=== PATIENT | male | born 1970 | race African-American/Black ===

== ENCOUNTER 2017-01-27 00:07 | Emergency (ER) | payer OTHER ==
[~2017-01-27] VITALS: Ht 175.3 cm; Wt 88.9 kg
--- NOTE | ~2017-01-27 | EKG ---
[address] [place] [address] ELECTROCARDIOGRAM REPORT Name: JOAN HERNANDEZ CANDACE 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: [id number] : 1970 Requested By: Clark Sims Order Number: [id number] MD: Antoine Sen Measurements Intervals [place] Rate: 58 P: 59 VT: 177 QRS: 51 QRSD: 78 T: 23 QT: 427 QTc: 420 Interpretive Statements Sinus bradycardia Otherwise no significant abnormality Baseline wander in lead(s) V3 Compared to ECG 09/22/2014 15:42:24 No significant change was found Electronically Signed On 01-27-2017 10:13:23 CDT by Antoine Sen [email or web address] <ELECTRONICALLY SIGNED> By: Antoine Sen MD, [facility] 01/27/17 1013 002 Antoine Sen MD, [facility] /EPI
[~2017-01-27 00:07] MED LIST: AMBIEN 5 MG TABL5 M1 PO; AMOXICILLIN 50500 M1 PO; APAP/CODEINE ELI5 M1 OR; APAP500 PO; AUGMENTIN 875-1 EACH PO; AUGMENTIN 875875 MG PO; BACTRIM DS TAB1 EACH PO; BACTROBAN CREAM30 G1; BAYER BACK & B1 EACH PO; CLARITIN; CLARITIN-D 24 H1 TA1 PO; CLEOCIN HCL150 MG PO; CLEOCIN HCL300 MG PO; DEXAMETHASONE 22 M1 PO; ENDOCET 10-3251 EACH PO; HYDROCODONE-AP1 EAC6; HYDROCODONE-AP1 EAC6 PO; HYDROGEN PEROXID1 ML; IBUPROFEN 600600 M1 PO; INVANZ 1GM/NS 101 GM IVPB; KEFLEX500 MG PO; LOPRESSOR50 PO; NORCO 5-325 TA1 EACH PO; ONDANSETRON HCL4 M2 PO; PERCOCET 5-3251 EACH PO; PREDNISONE; PREDNISONE 10 M10 MG PO; PREDNISONE 20 M20 M1 PO; PREDNISONE 5 MG5 M1 PO; PROVENTIL HFA6.7 G1 INH; TESSALON PERLE100 MG PO; TESSALON PERLES; TORADOL 10 MG T10 MG PO; VICODIN 5-5001 EACH PO; ZOCOR20 MG PO; ZOSYN 3/0.373.375 G3 IV; ZPAK PO
[2017-01-27] MEDS ORDERED: LISINOPRIL20 MG PO (00:13)
[2017-01-27 00:36] LABS: ABSOLUTE NEUTROPHILS 3.2 thou/uL (1.4-8.2); BASOPHILS 0.7 % (0.0-2.0); EOSINOPHILS 3.3 % (0.0-3.0); HEMOGLOBIN 15.8 gm/dL (14.0-18.0); LYMPHOCYTES 39.2 % (24.0-44.0); MCHC 34.4 g/dL (28.0-37.0); MCV 98.9 fL (80.0-100.0); MONOCYTES 10.6 % (1.0-8.0); PLATELET COUNT 241 thou/uL (150-400); POLYS 46.2 % (36.0-66.0); RBC 4.66 mil/uL (4.50-6.00); RDW 14.8 % (10.5-14.5); WBC 6.9 thou/uL (4.0-11.0)
[2017-01-27 00:39] LABS: MANUAL DIFF NO
[2017-01-27 00:40] LABS: ANION GAP 11 mmol/L (7-16); BUN 13 mg/dL (7-18); CALCIUM 8.9 mg/dL (8.5-10.1); CHLORIDE 104 mmol/L (98-107); CO2 24 mmol/L (21-32); CREATININE 0.9 mg/dL (0.7-1.3); GLUCOSE 97 mg/dL (74-106); POTASSIUM 3.7 mmol/L (3.5-5.1); SODIUM 139 mmol/L (136-145)
[2017-01-27 00:48] LABS: TROPONIN-I < 0.04 ng/mL (<0.04-0.07)
[2017-01-27] MEDS ORDERED: FLEXERIL PO (03:11)
[2017-01-27] MEDS ORDERED: IBUPROFEN 800800 M1 PO (03:11)
== END 2017-01-27 03:34 | disposition home or self-care (01) ==
LOC: ER 00:07
PROVIDERS: Emergency Medicine
DX: S46.911A Strain of unspecified muscle, fascia and tendon at shoulder and upper arm level, right arm, initial encounter (principal); R07.89 Other chest pain; R20.9 Unspecified disturbances of skin sensation; I10 Essential (primary) hypertension; F17.210 Nicotine dependence, cigarettes, uncomplicated; F10.99 Alcohol use, unspecified with unspecified alcohol-induced disorder; Z98.890 Other specified postprocedural states; X58.XXXA Exposure to other specified factors, initial encounter; Y93.89 Activity, other specified; Y92.89 Other specified places as the place of occurrence of the external cause; Y99.8 Other external cause status

== ENCOUNTER 2017-02-08 11:28 | Emergency (ER) | payer OTHER ==
[~2017-02-08] VITALS: Ht 175.3 cm; Wt 88.0 kg
[~2017-02-08 11:28] MED LIST changes: +FLEXERIL PO; +IBUPROFEN 800800 M1 PO; +LISINOPRIL20 MG PO
[2017-02-08] MEDS ORDERED: APAP500 PO (11:41)
[2017-02-08 12:49] LABS: ABSOLUTE NEUTROPHILS 3.1 thou/uL (1.4-8.2); BASOPHILS 0.5 % (0.0-2.0); EOSINOPHILS 4.7 % (0.0-3.0); LYMPHOCYTES 33.4 % (24.0-44.0); MCH 33.9 pg (26.0-34.0); MCHC 33.9 g/dL (28.0-37.0); MCV 99.9 fL (80.0-100.0); MONOCYTES 9.3 % (1.0-8.0); PLATELET COUNT 246 thou/uL (150-400); POLYS 52.1 % (36.0-66.0); RBC 4.71 mil/uL (4.50-6.00); RDW 15.4 % (10.5-14.5)
[2017-02-08 12:55] LABS: MANUAL DIFF NO
[2017-02-08 13:17] LABS: CALCIUM 8.8 mg/dL (8.5-10.1); CREATININE 0.9 mg/dL (0.7-1.3)
[2017-02-08] MEDS ORDERED: MEDROLDOSEPACK PO (17:40)
[2017-02-08] MEDS ORDERED: NORCO 5-325 TA1 EACH PO (17:40)
[2017-02-08] MEDS ORDERED: AUGMENTIN 875875 MG PO (17:40)
== END 2017-02-08 19:08 | disposition home or self-care (01) ==
LOC: ER 11:28
PROVIDERS: Nurse Practitioner
DX: K12.2 Cellulitis and abscess of mouth (principal); G43.909 Migraine, unspecified, not intractable, without status migrainosus; I10 Essential (primary) hypertension; F17.210 Nicotine dependence, cigarettes, uncomplicated; F10.99 Alcohol use, unspecified with unspecified alcohol-induced disorder; Z98.890 Other specified postprocedural states

== ENCOUNTER 2017-03-23 02:59 | Emergency (ER) | payer OTHER ==
[~2017-03-23] VITALS: Ht 175.3 cm; Wt 82.6 kg
[~2017-03-23 02:59] MED LIST changes: +MEDROLDOSEPACK PO
[2017-03-23] MEDS ORDERED: CLEOCIN HCL150 MG PO (03:33)
[2017-04-06] MEDS ORDERED: FLEXERIL PO (23:37)
[2017-04-06] MEDS ORDERED: PERCOCET 5-3251 EACH PO (23:37)
== END 2017-03-23 04:37 | disposition home or self-care (01) ==
LOC: ER 02:59
DX: G43.909 Migraine, unspecified, not intractable, without status migrainosus (principal); I10 Essential (primary) hypertension; F17.210 Nicotine dependence, cigarettes, uncomplicated; F10.99 Alcohol use, unspecified with unspecified alcohol-induced disorder

== ENCOUNTER 2017-04-06 22:10 | Emergency (ER) | payer OTHER | END 2017-04-07 00:01 | disposition home or self-care (01) | LOC: ER 22:10 | DX: C14.0 Malignant neoplasm of pharynx, unspecified (principal); G89.3 Neoplasm related pain (acute) (chronic); G43.909 Migraine, unspecified, not intractable, without status migrainosus; I10 Essential (primary) hypertension; F17.210 Nicotine dependence, cigarettes, uncomplicated; F10.99 Alcohol use, unspecified with unspecified alcohol-induced disorder; Z98.890 Other specified postprocedural states ==

== ENCOUNTER 2017-04-26 08:19 | Emergency (ER) | payer OTHER ==
[~2017-04-26] VITALS: Ht 175.3 cm; Wt 83.5 kg
[2017-04-26 09:20] LABS: HEMATOCRIT 45.9 % (42.0-52.0); HEMOGLOBIN 15.9 gm/dL (14.0-18.0); MCH 33.4 pg (26.0-34.0); MCHC 34.6 g/dL (28.0-37.0); MCV 96.5 fL (80.0-100.0); RBC 4.76 mil/uL (4.50-6.00); RDW 14.2 % (10.5-14.5); WBC 6.7 thou/uL (4.0-11.0)
[2017-04-26 09:33] LABS: POTASSIUM 4.1 mmol/L (3.5-5.1)
== END 2017-04-26 11:41 | disposition home or self-care (01) ==
LOC: ER 08:19
PROVIDERS: Emergency Medicine
DX: R22.1 Localized swelling, mass and lump, neck (principal); G43.909 Migraine, unspecified, not intractable, without status migrainosus; I10 Essential (primary) hypertension; F17.210 Nicotine dependence, cigarettes, uncomplicated; F10.99 Alcohol use, unspecified with unspecified alcohol-induced disorder

== ENCOUNTER 2017-09-03 10:17 | Emergency (ER) | payer OTHER ==
[~2017-09-03] VITALS: Ht 182.9 cm; Wt 104.3 kg
[~2017-09-03 10:17] MED LIST changes: +TRAMADOL 50 MG50 MG PO
[2017-09-03 10:18] VITALS: BP 165/120
[2017-09-03] MEDS ORDERED: TRAMADOL 50 MG50 MG PO (10:51)
[2017-09-03] MEDS ORDERED: AMOXICILLIN 50500 MG PO (10:51)
[2018-03-11] MEDS ORDERED: NORCO 5-325 TA1 EACH PO (15:13)
[2018-03-11] MEDS ORDERED: PREDNISONE 20 M20 MG PO (15:13)
[2018-03-11] MEDS ORDERED: CYCLOBENZAPRINE5 MG PO (15:13)
[2018-03-11] MEDS ORDERED: MOBIC7.5 MG PO (15:13)
[2018-04-19] MEDS ORDERED: PRINIVIL10 MG PO (20:12)
[2018-04-19] MEDS ORDERED: GUAIFEN-CODEINE10 ML PO (22:48)
== END 2017-09-03 11:17 | disposition home or self-care (01) ==
LOC: ER 10:17
DX: K04.7 Periapical abscess without sinus (principal); G43.909 Migraine, unspecified, not intractable, without status migrainosus; I10 Essential (primary) hypertension; F17.210 Nicotine dependence, cigarettes, uncomplicated

== ENCOUNTER 2017-10-02 20:12 | Emergency (ER) | payer OTHER ==
[~2017-10-02] VITALS: Ht 175.3 cm; Wt 88.5 kg
[~2017-10-02 20:12] MED LIST changes: +AMOXICILLIN 50500 MG PO
[2017-10-02] MEDS ORDERED: TYLENOL325 MG PO (20:36)
[2017-10-02 22:09] LABS: ABSOLUTE NEUTROPHILS 2.8 thou/uL (1.4-8.2); BASOPHILS 0.6 % (0.0-2.0); EOSINOPHILS 5.6 % (0.0-3.0); HEMOGLOBIN 15.3 gm/dL (14.0-18.0); LYMPHOCYTES 33.6 % (24.0-44.0); MCH 33.3 pg (26.0-34.0); MCHC 33.9 g/dL (28.0-37.0); MONOCYTES 10.3 % (1.0-8.0); PLATELET COUNT 204 thou/uL (150-400); POLYS 49.9 % (36.0-66.0); RBC 4.59 mil/uL (4.50-6.00); RDW 14.1 % (10.5-14.5); WBC 5.6 thou/uL (4.0-11.0)
[2017-10-02 22:12] LABS: CALCIUM 8.9 mg/dL (8.5-10.1)
[2017-10-02 22:19] LABS: ALBUMIN 3.7 g/dL (3.4-5.0); TOTAL BILIRUBIN 0.2 mg/dL (<0.1-1.0); TOTAL PROTEIN 6.4 g/dL (6.4-8.2)
[2017-10-02] MEDS ORDERED: AUGMENTIN 500-1 EACH PO (23:14)
[2017-10-02] MEDS ORDERED: HYDROCODONE-AP1 EAC6 PO (23:14)
[2017-10-02] MEDS ORDERED: PREDNISONE 20 M20 M1 PO (23:14)
[2017-10-02] MEDS ORDERED: MOBIC7.5 MG PO (23:14)
[2017-10-02 23:35] VITALS: BP 155/96
[2018-03-11] MEDS ORDERED: MOBIC7.5 MG PO (15:13)
[2018-03-11] MEDS ORDERED: NORCO 5-325 TA1 EACH PO (15:13)
[2018-03-11] MEDS ORDERED: CYCLOBENZAPRINE5 MG PO (15:13)
[2018-03-11] MEDS ORDERED: PREDNISONE 20 M20 MG PO (15:13)
[2018-04-19] MEDS ORDERED: PRINIVIL10 MG PO (20:12)
[2018-04-19] MEDS ORDERED: GUAIFEN-CODEINE10 ML PO (22:48)
== END 2017-10-02 23:38 | disposition home or self-care (01) ==
LOC: ER 20:12
PROVIDERS: Physician Assistant
DX: K09.8 Other cysts of oral region, not elsewhere classified (principal); R09.81 Nasal congestion; G43.909 Migraine, unspecified, not intractable, without status migrainosus; I10 Essential (primary) hypertension; F17.210 Nicotine dependence, cigarettes, uncomplicated

== ENCOUNTER 2018-05-30 18:48 | Emergency (ER) | payer OTHER ==
[~2018-05-30] VITALS: Ht 175.3 cm; Wt 88.9 kg
[~2018-05-30 18:48] MED LIST changes: +AUGMENTIN 500-1 EACH PO; +CYCLOBENZAPRINE5 MG PO; +GUAIFEN-CODEINE10 ML PO; +MOBIC7.5 MG PO; +PREDNISONE 20 M20 MG PO; +PRINIVIL10 MG PO; +TYLENOL325 MG PO
[2018-05-30 20:24] LABS: ABSOLUTE NEUTROPHILS 2.2 thou/uL (1.4-8.2); BASOPHILS 0.8 % (0.0-2.0); HEMATOCRIT 44.3 % (42.0-52.0); HEMOGLOBIN 15.5 gm/dL (14.0-18.0); LYMPHOCYTES 40.8 % (24.0-44.0); MCH 33.9 pg (26.0-34.0); MCHC 35.1 g/dL (28.0-37.0); MCV 96.6 fL (80.0-100.0); MONOCYTES 8.7 % (1.0-8.0); PLATELET COUNT 197 thou/uL (150-400); POLYS 44.7 % (36.0-66.0); RBC 4.58 mil/uL (4.50-6.00); RDW 14.6 % (10.5-14.5); WBC 4.9 thou/uL (4.0-11.0)
[2018-05-30 20:31] LABS: CALCIUM 8.7 mg/dL (8.5-10.1); CREATININE 1.1 mg/dL (0.7-1.3); POTASSIUM 4.1 mmol/L (3.5-5.1)
[2018-05-30] MEDS ORDERED: PREDNISONE 20 M20 M1 PO (21:56)
== END 2018-05-30 23:36 | disposition home or self-care (01) ==
LOC: ER 18:48
PROVIDERS: Emergency Medicine
DX: R13.10 Dysphagia, unspecified (principal); F17.210 Nicotine dependence, cigarettes, uncomplicated; G43.909 Migraine, unspecified, not intractable, without status migrainosus; I10 Essential (primary) hypertension

== ENCOUNTER 2018-07-11 19:42 | Emergency (ER) | payer OTHER ==
[~2018-07-11] VITALS: Ht 175.3 cm; Wt 83.9 kg
[2018-07-11] MEDS ORDERED: NAPROSYN500 MG PO (21:24)
[2018-07-11] MEDS ORDERED: TRAMADOL 50 MG50 MG PO (21:24)
[2018-07-11 21:40] VITALS: BP 177/111
== END 2018-07-11 21:41 | disposition home or self-care (01) ==
LOC: ER 19:42
DX: S83.92XA Sprain of unspecified site of left knee, initial encounter (principal); X50.3XXA Overexertion from repetitive movements, initial encounter; Y93.89 Activity, other specified; Y92.89 Other specified places as the place of occurrence of the external cause; Y99.8 Other external cause status; I10 Essential (primary) hypertension; G43.909 Migraine, unspecified, not intractable, without status migrainosus; F17.210 Nicotine dependence, cigarettes, uncomplicated

== ENCOUNTER 2019-02-23 20:36 | Emergency (ER) | payer OTHER ==
[~2019-02-23] VITALS: Ht 175.3 cm; Wt 90.7 kg
[~2019-02-23 20:36] MED LIST changes: +NAPROSYN500 MG PO
[2019-02-23 22:50] VITALS: BP 159/84
== END 2019-02-23 23:00 | disposition home or self-care (01) ==
LOC: ER 20:36
DX: M25.552 Pain in left hip (principal); M25.551 Pain in right hip; M54.5 Low back pain; F17.210 Nicotine dependence, cigarettes, uncomplicated; G43.909 Migraine, unspecified, not intractable, without status migrainosus; I10 Essential (primary) hypertension

== ENCOUNTER 2019-03-15 22:04 | Emergency (ER) | payer OTHER ==
[~2019-03-15] VITALS: Ht 175.3 cm; Wt 90.7 kg
[2019-03-15 23:12] LABS: ABSOLUTE NEUTROPHILS 2.1 thou/uL (1.4-8.2); BASOPHILS 0.6 % (0.0-2.0); EOSINOPHILS 4.8 % (0.0-3.0); HEMATOCRIT 42.5 % (42.0-52.0); HEMOGLOBIN 14.4 gm/dL (14.0-18.0); LYMPHOCYTES 43.6 % (24.0-44.0); MCH 32.7 pg (26.0-34.0); MCHC 33.9 g/dL (28.0-37.0); MCV 96.6 fL (80.0-100.0); MONOCYTES 10.5 % (1.0-8.0); PLATELET COUNT 200 thou/uL (150-400); POLYS 40.5 % (36.0-66.0); RDW 14.9 % (10.5-14.5); WBC 5.2 thou/uL (4.0-11.0)
[2019-03-15 23:26] LABS: CALCIUM 8.5 mg/dL (8.5-10.1); POTASSIUM 3.5 mmol/L (3.5-5.1)
[2019-03-15 23:32] LABS: ALBUMIN 3.7 g/dL (3.4-5.0); TOTAL BILIRUBIN 0.4 mg/dL (<0.1-1.0); TOTAL PROTEIN 6.8 g/dL (6.4-8.2)
[2019-03-16] MEDS ORDERED: AUGMENTIN 875-1 EACH PO (01:23)
[2019-03-16] MEDS ORDERED: CHILDREN'S160 MG/11 PO (01:25)
[2019-03-16 01:31] VITALS: BP 159/105
--- NOTE | 2019-03-16 15:25 | EKG ---
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: : 1970 Requested By: Hema Llamas Order Number: [id number] MD: Antoine Sen Measurements Intervals [place] Rate: 59 P: 28 MS: 183 QRS: 6 QRSD: 82 T: 9 QT: 420 QTc: 416 Interpretive Statements Sinus bradycardia Otherwise normal tracing Compared to ECG 01/27/2017 00:22:16 No significant change was found Electronically Signed On 03-16-2019 15:25:25 CDT by Antoine Sen [email or web address] ��������������������������������������������� <ELECTRONICALLY SIGNED> ���������������������������������������� By: Antoine Sen MD, [facility] ��������������������������������������������� 03/16/19 1525 2209 08 Antoine Sen MD, [facility] /EPI
== END 2019-03-16 01:34 | disposition home or self-care (01) ==
LOC: ER 22:04
PROVIDERS: Emergency Medicine
DX: R22.0 Localized swelling, mass and lump, head (principal); K14.8 Other diseases of tongue; G43.909 Migraine, unspecified, not intractable, without status migrainosus; I10 Essential (primary) hypertension; F17.210 Nicotine dependence, cigarettes, uncomplicated; Z79.899 Other long term (current) drug therapy

== ENCOUNTER 2019-05-18 13:50 | Emergency (ER) | payer OTHER ==
[~2019-05-18] VITALS: Ht 175.3 cm; Wt 93.0 kg
[~2019-05-18 13:50] MED LIST changes: +CHILDREN'S160 MG/11 PO
[2019-05-18] MEDS ORDERED: PRINIVIL10 MG PO (13:55)
[2019-05-18] MEDS ORDERED: LOPRESSOR50 PO (13:55)
[2019-05-18] MEDS ORDERED: IBUPROFEN 600600 M1 PO (15:03)
[2019-05-18 17:18] VITALS: BP 177/88
== END 2019-05-18 15:07 | disposition home or self-care (01) ==
LOC: ER 13:50
DX: S60.221A Contusion of right hand, initial encounter (principal); I10 Essential (primary) hypertension; G43.909 Migraine, unspecified, not intractable, without status migrainosus; F17.210 Nicotine dependence, cigarettes, uncomplicated; Z98.890 Other specified postprocedural states; Y04.0XXA Assault by unarmed brawl or fight, initial encounter; Y92.89 Other specified places as the place of occurrence of the external cause; Y93.89 Activity, other specified; Y99.8 Other external cause status

== ENCOUNTER 2019-05-28 19:34 | Emergency (ER) | payer OTHER ==
[~2019-05-28] VITALS: Ht 175.3 cm; Wt 93.0 kg
[2019-05-28 21:16] LABS: ABSOLUTE NEUTROPHILS 3.2 thou/uL (1.4-8.2); BASOPHILS 0.7 % (0.0-2.0); EOSINOPHILS 3.4 % (0.0-3.0); HEMOGLOBIN 15.2 gm/dL (14.0-18.0); LYMPHOCYTES 37.9 % (24.0-44.0); MCH 33.1 pg (26.0-34.0); MCHC 33.7 g/dL (28.0-37.0); MCV 98.1 fL (80.0-100.0); MONOCYTES 9.1 % (1.0-8.0); PLATELET COUNT 236 thou/uL (150-400); POLYS 48.9 % (36.0-66.0); RBC 4.59 mil/uL (4.50-6.00); RDW 14.6 % (10.5-14.5); WBC 6.5 thou/uL (4.0-11.0)
[2019-05-28 21:24] LABS: CALCIUM 8.7 mg/dL (8.5-10.1); POTASSIUM 3.7 mmol/L (3.5-5.1)
[2019-05-28 21:30] LABS: ALBUMIN 3.9 g/dL (3.4-5.0); TOTAL BILIRUBIN 0.3 mg/dL (<0.1-1.0); TOTAL PROTEIN 7.1 g/dL (6.4-8.2)
[2019-05-28] MEDS ORDERED: PREDNISONE 10 M10 MG PO (22:27)
[2019-05-28] MEDS ORDERED: AUGMENTIN 875-1 EACH PO (22:27)
[2019-05-28] MEDS ORDERED: NORCO 5-325 TA1 EAC1 PO (22:34)
[2019-05-28 23:00] VITALS: BP 153/93
== END 2019-05-28 23:02 | disposition home or self-care (01) ==
LOC: ER 19:34
PROVIDERS: Physician Assistant
DX: J32.0 Chronic maxillary sinusitis (principal); K02.9 Dental caries, unspecified; M54.2 Cervicalgia; I10 Essential (primary) hypertension; G43.909 Migraine, unspecified, not intractable, without status migrainosus; F17.210 Nicotine dependence, cigarettes, uncomplicated; Z85.818 Personal history of malignant neoplasm of other sites of lip, oral cavity, and pharynx

== ENCOUNTER 2019-06-23 19:19 | Emergency (ER) | payer OTHER ==
[~2019-06-23] VITALS: Ht 175.3 cm; Wt 95.3 kg
[~2019-06-23 19:19] MED LIST changes: +NORCO 5-325 TA1 EAC1 PO
[2019-06-23 20:15] LABS: ABSOLUTE NEUTROPHILS 4.2 thou/uL (1.4-8.2); BASOPHILS 0.7 % (0.0-2.0); EOSINOPHILS 3.1 % (0.0-3.0); HEMOGLOBIN 14.7 gm/dL (14.0-18.0); LYMPHOCYTES 31.1 % (24.0-44.0); MCH 33.4 pg (26.0-34.0); MCHC 34.2 g/dL (28.0-37.0); MCV 97.9 fL (80.0-100.0); MONOCYTES 9.2 % (1.0-8.0); PLATELET COUNT 160 thou/uL (150-400); POLYS 55.9 % (36.0-66.0); RBC 4.39 mil/uL (4.50-6.00); RDW 14.7 % (10.5-14.5); WBC 8.4 thou/uL (4.0-11.0)
[2019-06-23 20:49] LABS: ALBUMIN 3.6 g/dL (3.4-5.0); CREATININE 1.1 mg/dL (0.7-1.3); POTASSIUM 3.9 mmol/L (3.5-5.1); TOTAL BILIRUBIN 0.2 mg/dL (<0.1-1.0); TOTAL PROTEIN 6.6 g/dL (6.4-8.2)
[2019-06-23 21:48] VITALS: BP 198/116
[2019-06-23] MEDS ORDERED: PREDNISONE50 MG PO (21:48)
--- NOTE | 2019-06-24 19:14 | EKG ---
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 : 1970 Requested By: Ramesh Lopez Order Number: [id number] MD: Antoine Sen Measurements Intervals [place] Rate: 68 P: 22 DE: 183 QRS: 14 QRSD: 77 T: 26 QT: 373 QTc: 397 Interpretive Statements Sinus rhythm No significant abnormality Compared to ECG 03/15/2019 22:09:32 Sinus bradycardia no longer present Electronically Signed On 06-24-2019 19:14:28 LIGHT INDUSTRIAL SUPERVISOR by Antoine Sen [email or web address] <ELECTRONICALLY SIGNED> By: Antoine Sen MD, [facility] 06/24/191913 29 29 Antoine Sen MD, FACC /EPI
== END 2019-06-23 21:47 | disposition home or self-care (01) ==
LOC: ER 19:19
PROVIDERS: Emergency Medicine
DX: G51.0 Bell's palsy (principal); G43.909 Migraine, unspecified, not intractable, without status migrainosus; I10 Essential (primary) hypertension; F17.210 Nicotine dependence, cigarettes, uncomplicated

== ENCOUNTER 2019-06-26 16:41 | Emergency (ER) | payer OTHER ==
[~2019-06-26] VITALS: Ht 175.3 cm; Wt 93.0 kg
[~2019-06-26 16:41] MED LIST changes: +PREDNISONE50 MG PO
[2019-06-26 18:07] LABS: ABSOLUTE NEUTROPHILS 2.9 thou/uL (1.4-8.2); BASOPHILS 0.6 % (0.0-2.0); EOSINOPHILS 4.4 % (0.0-3.0); HEMATOCRIT 46.7 % (42.0-52.0); HEMOGLOBIN 15.6 gm/dL (14.0-18.0); LYMPHOCYTES 32.8 % (24.0-44.0); MCH 32.8 pg (26.0-34.0); MCHC 33.3 g/dL (28.0-37.0); MCV 98.3 fL (80.0-100.0); MONOCYTES 9.4 % (1.0-8.0); PLATELET COUNT 215 thou/uL (150-400); POLYS 52.8 % (36.0-66.0); RBC 4.75 mil/uL (4.50-6.00); RDW 14.9 % (10.5-14.5); WBC 5.5 thou/uL (4.0-11.0)
[2019-06-26 18:14] LABS: CALCIUM 9.3 mg/dL (8.5-10.1); CREATININE 1.1 mg/dL (0.7-1.3); POTASSIUM 4.1 mmol/L (3.5-5.1)
[2019-06-26 18:20] LABS: ALBUMIN 3.7 g/dL (3.4-5.0); TOTAL BILIRUBIN 0.3 mg/dL (<0.1-1.0)
[2019-06-26] MEDS ORDERED: VALTREX1000 MG PO (18:27)
[2019-06-26] MEDS ORDERED: NORCO 10-325 T1 EACH PO (18:27)
[2019-06-26 19:04] VITALS: BP 169/110
== END 2019-06-26 19:07 | disposition home or self-care (01) ==
LOC: ER 16:41
PROVIDERS: Physician Assistant
DX: B02.21 Postherpetic geniculate ganglionitis (principal); G51.0 Bell's palsy; H53.142 Visual discomfort, left eye; I10 Essential (primary) hypertension; G43.909 Migraine, unspecified, not intractable, without status migrainosus; F17.210 Nicotine dependence, cigarettes, uncomplicated

== ENCOUNTER 2019-06-29 21:29 | Emergency (ER) | payer OTHER ==
[~2019-06-29] VITALS: Ht 175.3 cm; Wt 93.0 kg
[~2019-06-29 21:29] MED LIST changes: +NORCO 10-325 T1 EACH PO; +VALTREX1000 MG PO
[2019-06-29] MEDS ORDERED: AUGMENTIN 875-1 EACH PO (21:45)
[2019-06-29 22:13] LABS: HEMATOCRIT 46.7 % (42.0-52.0); HEMOGLOBIN 16.1 gm/dL (14.0-18.0); MCH 33.8 pg (26.0-34.0); MCHC 34.4 g/dL (28.0-37.0); MCV 98.3 fL (80.0-100.0); RBC 4.75 mil/uL (4.50-6.00); RDW 14.6 % (10.5-14.5); WBC 14.8 thou/uL (4.0-11.0)
[2019-06-29 22:22] LABS: CREATININE 1.1 mg/dL (0.7-1.3)
[2019-06-29 22:23] LABS: MAGNESIUM 2.2 mg/dL (1.8-2.4)
[2019-06-29 22:31] LABS: URINE BILIRUBIN NEGATIVE (Negative); URINE BLOOD NEGATIVE (Negative); URINE CLARITY CLEAR; URINE COLOR YELLOW; URINE GLUCOSE-RANDOM* NEGATIVE (Negative); URINE KETONES NEGATIVE (Negative); URINE LEUKOCYTES-REFLEX NEGATIVE (Negative); URINE NITRITE-REFLEX NEGATIVE (Negative); URINE PROTEIN (DIPSTICK) NEGATIVE (Negative); URINE UROBILINOGEN 0.2 E.U./dl (0.2-1.0)
[2019-06-30] MEDS ORDERED: MECLIZINE HCL25 M1 PO
[2019-06-30 00:01] VITALS: BP 172/95
== END 2019-06-30 00:05 | disposition home or self-care (01) ==
LOC: ER 21:29
PROVIDERS: Emergency Medicine Emergency Medical Services
DX: G51.0 Bell's palsy (principal); R42 Dizziness and giddiness; G43.909 Migraine, unspecified, not intractable, without status migrainosus; I10 Essential (primary) hypertension; F17.210 Nicotine dependence, cigarettes, uncomplicated

== ENCOUNTER 2019-09-04 09:38 | Emergency (ER) | payer OTHER ==
[~2019-09-04] VITALS: Ht 175.3 cm; Wt 89.8 kg
[~2019-09-04 09:38] MED LIST changes: +MECLIZINE HCL25 M1 PO
[2019-09-04 10:03] LABS: ABSOLUTE NEUTROPHILS 2.6 thou/uL (1.4-8.2); BASOPHILS 0.9 % (0.0-2.0); EOSINOPHILS 4.1 % (0.0-3.0); HEMATOCRIT 45.3 % (42.0-52.0); HEMOGLOBIN 15.1 gm/dL (14.0-18.0); LYMPHOCYTES 33.3 % (24.0-44.0); MCH 33.2 pg (26.0-34.0); MCHC 33.3 g/dL (28.0-37.0); MCV 99.7 fL (80.0-100.0); MONOCYTES 6.4 % (1.0-8.0); PLATELET COUNT 212 thou/uL (150-400); POLYS 55.3 % (36.0-66.0); RBC 4.55 mil/uL (4.50-6.00); RDW 14.1 % (10.5-14.5); WBC 4.7 thou/uL (4.0-11.0)
[2019-09-04 10:06] LABS: CALCIUM 8.9 mg/dL (8.5-10.1); POTASSIUM 3.9 mmol/L (3.5-5.1)
[2019-09-04 10:12] LABS: ALBUMIN 3.9 g/dL (3.4-5.0); TOTAL BILIRUBIN 0.5 mg/dL (<0.1-1.0); TOTAL PROTEIN 7.1 g/dL (6.4-8.2)
[2019-09-04 13:45] VITALS: BP 167/106
== END 2019-09-04 13:47 | disposition home or self-care (01) ==
LOC: ER 09:38
PROVIDERS: Emergency Medicine
DX: J02.9 Acute pharyngitis, unspecified (principal); I10 Essential (primary) hypertension; G43.909 Migraine, unspecified, not intractable, without status migrainosus; F17.210 Nicotine dependence, cigarettes, uncomplicated; Z98.890 Other specified postprocedural states

== ENCOUNTER 2019-09-07 20:09 | Emergency (ER) | payer OTHER ==
[~2019-09-07] VITALS: Ht 175.3 cm; Wt 90.7 kg
[2019-09-07 20:54] LABS: ABSOLUTE NEUTROPHILS 2.8 thou/uL (1.4-8.2); BASOPHILS 0.6 % (0.0-2.0); HEMATOCRIT 43.3 % (42.0-52.0); HEMOGLOBIN 14.2 gm/dL (14.0-18.0); LYMPHOCYTES 34.3 % (24.0-44.0); MCHC 32.9 g/dL (28.0-37.0); MCV 100.4 fL (80.0-100.0); MONOCYTES 8.1 % (1.0-8.0); PLATELET COUNT 200 thou/uL (150-400); RBC 4.31 mil/uL (4.50-6.00); RDW 14.5 % (10.5-14.5); WBC 5.3 thou/uL (4.0-11.0)
[2019-09-07 21:03] LABS: CALCIUM 8.3 mg/dL (8.5-10.1); CREATININE 0.9 mg/dL (0.7-1.3); POTASSIUM 3.5 mmol/L (3.5-5.1)
[2019-09-07 21:19] VITALS: BP 164/98
[2019-09-07] MEDS ORDERED: MEDROLDOSEPACK PO (21:22)
[2019-09-07] MEDS ORDERED: CLEOCIN HCL300 MG PO (21:22)
== END 2019-09-07 21:45 | disposition home or self-care (01) ==
LOC: ER 20:09
PROVIDERS: Emergency Medicine Emergency Medical Services
DX: R13.10 Dysphagia, unspecified (principal); G43.909 Migraine, unspecified, not intractable, without status migrainosus; I10 Essential (primary) hypertension; F17.210 Nicotine dependence, cigarettes, uncomplicated; Z98.890 Other specified postprocedural states

== ENCOUNTER 2019-10-26 18:40 | Inpatient (IN) | payer OTHER ==
[~2019-10-26] VITALS: Ht 175.3 cm; Wt 102.5 kg
[2019-10-26 18:41] VITALS: BP 201/124
[2019-10-26 19:33] LABS: ABSOLUTE NEUTROPHILS 4.1 thou/uL (1.4-8.2); BASOPHILS 0.4 % (0.0-2.0); EOSINOPHILS 2.1 % (0.0-3.0); HEMATOCRIT 46.6 % (42.0-52.0); HEMOGLOBIN 15.4 gm/dL (14.0-18.0); LYMPHOCYTES 26.2 % (24.0-44.0); MCHC 33.1 g/dL (28.0-37.0); MONOCYTES 8.8 % (1.0-8.0); PLATELET COUNT 219 thou/uL (150-400); POLYS 62.5 % (36.0-66.0); RBC 4.67 mil/uL (4.50-6.00); RDW 14.4 % (10.5-14.5); WBC 6.5 thou/uL (4.0-11.0)
[2019-10-26 19:43] LABS: CREATININE 1.1 mg/dL (0.7-1.3); POTASSIUM 3.7 mmol/L (3.5-5.1)
[2019-10-26 22:43] VITALS: BP 155/85
[2019-10-26 22:46] VITALS: BP 155/85
[2019-10-26 23:30] VITALS: BP 177/107
--- NOTE | 2019-10-27 02:57 | NUR ---
RECEIVED REPORT FROM [facility] ED RN.PATIENT ARRIVED TO ROOM 212 AROUND 2300.PATIENT A/O X 4.PAIN WELL CONTROLLED WITH FENTANYL IV.COMPLAIN OF A LITTLE SOB.SPO2 IS GREATER THAN 97%.BP ELEVATED;HYDRALAZINE GIVEN.MONITOR SHOWS SINUS ARRHYTHMIA/SINUS RHYTHM.PATIENT'S MOTHER CALLED AND CHECK ABOUT PATIENT STATUS.POC CONTINUED.
[2019-10-27 04:54] VITALS: BP 151/83
[2019-10-27 07:50] VITALS: BP 152/89
[2019-10-27 11:20] VITALS: BP 158/91
--- NOTE | 2019-10-27 11:38 | NUR ---
assessment: CM REVIEWED CHART AND MET WITH PATIENT AT THE BEDSIDE. PT IS ALERT AND ORIENTED X4. PT REPORTS THAT HE LIVES AT HOME WITH A ROOMATE. PT REPORTS HAVING TWO STEPS TO ENTER HIS HOME. 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 PT IS LISTED PATIENT PAY AND CM REVIEWED THIS WITH PATIENT AND HE REPORTS THAT HE DOES HAVE INSURANCE HE IS JUST UNSURE WHAT IT IS. CM ASKED IF PATIENT COULD HAVE FAMILY OR FRIENDS ACCESS THIS INFORMATION, HE STATES NOONE CAN BECAUSE HE HAS IT LOCKED UP AND ONLY WANTS ACCESS TO IT. CM DISCUSSED IMPORTANCE OF HAVING THIS INFORMATION TO NOTIFY INSURANCE IN A TIMELY MANNER. HE STATES HE WILL HAVE TO CALL ONCE HE DISCHARGES. PT REPORTS HE HAS NOT HAD HH IN THE PAST. CM DISCUSSED ROLE. PT REPORTS HE DOES NOT ANTICIPATE HAVING ANY NEEDS AT DISCHARGES. PT IS CURRENTLY ON IV ANBX/STERIODS AND IS TO HAVE SWALLOW EVAL. CM WILL CONTINUE TO FOLLOW TO ASSIST NEEDED.
[2019-10-27 15:50] VITALS: BP 165/99
--- NOTE | 2019-10-27 19:24 | NUR ---
ASSUMED CARE AT SHIFT CHANGE, ALERT AND ORIENTED X4. ASSESSMENT DOCUMENTED. WAS NPO MOST OF THE DAY, VIDEO SWALLOW WAS DONE, PLS REPORT. BP 165/99 MEDICATED INDICATED, OTHER VSS, AND SR ON THE MONITOR. AND WILL CONTINU WITH POC.
[2019-10-27 19:43] VITALS: BP 166/105
--- NOTE | 2019-10-27 22:42 | NUR ---
A/O X 4.UP INDEPENDENTLY.PAIN FAIRLY CONTROLLED WITH FENTANYL IV.BP ELEVATED.HYDRALAZINE GIVEN.EDUCATED WITH HIS NEW DIET.VERBALIZED UNDERSTANDING.MONITOR SHOWS SINUS TACHY.POC CONTINUED.
[2019-10-28 04:43] VITALS: BP 162/101
[2019-10-28 07:35] VITALS: BP 160/96
[2019-10-28 11:12] VITALS: BP 154/99
[2019-10-28 16:27] VITALS: BP 158/89
--- NOTE | 2019-10-28 18:11 | NUR ---
PT ALERT AND ORIENTED. PRN PAIN MED GIVEN FOR RIGHT NECK PAIN WITH PARTIAL RELIEF. IV FLUIDS INFUSING ORDERED. ST TO SR ON TELE. NO CARDIAC OR RESPIRATORY DISTRESS NOTED. WILL CONTINUE TO MONITOR.
[2019-10-28 19:45] VITALS: BP 164/90
[2019-10-29 04:45] VITALS: BP 130/67
--- NOTE | 2019-10-29 05:25 | NUR ---
ASSUMED PT CARE AT 1900. PT IS ALERT AND ORIENTED WITH NO SIGN OF DISTRESS NOTED IN PT. DENIES ANY PAIN. LEFT GROIN SITE IS INTACT, NO BLEEDING OR HEMATOMA. FALL PRECAUTION IN PLACE. ASSESSMENT COMPLETED AND DOCUMENTED. SCHEDULED MEDS ADMINISTERED TO PT. CONTINUE TO MONITOR PATIENT, NO FURTHER NEEDS AT THIS TIME.
--- NOTE | 2019-10-29 05:33 | NUR ---
ASSUMED PT CARE AT 1900. PT IS ALERT AND ORIENTED. NO SIGN OF DISTRESS NOTED IN PT. VERBALIZES PAIN. PAIN MED ADMINISTERED UPON REQUEST. BLOOD PRESSURE ELEVATED. HYDRALAZINE ADMINISTERED. ASSESSMENT COMPLETED AND DOCUMENTED. VITAL SIGNS STABLE. SCHEDULED MEDS ADMINISTERED TO PT. DENIES ANY FUTHER NEEDS AT THIS TIME.
[2019-10-29 07:36] VITALS: BP 126/82
[2019-10-29 11:19] VITALS: BP 140/79
--- NOTE | 2019-10-29 16:16 | NUR ---
PT ALERT AND ORIENTED. VSS. PRN PAIN MED GIVEN WITH PARTIAL RELIEF. PT REPORT HAVING SOB WITH REPOSITIONING. DR. GARCIA AWARE. SEEN BY SPEECH THERAPY TODAY. WILL CONTINUE TO MONITOR.
[2019-10-29 16:47] VITALS: BP 152/78
[2019-10-29 19:47] VITALS: BP 149/81
[2019-10-30 05:00] VITALS: BP 124/72
--- NOTE | 2019-10-30 05:21 | NUR ---
ASSUMED PT CARE AT 1900. PT IS ALERT AND ORIENTED WITH NO SIGN OF DISTRESS NOTED. PT VERBALIZES PAIN. PAIN MEDS ADMINISTERED. ASSESSMENT COMPLETED AND DOCUMENTED. SCHEDULED MEDS ADMINISTERED TO PT. CONTINUE TO MONITOR PATIENT
[2019-10-30 07:30] VITALS: BP 129/67
[2019-10-30] MEDS ORDERED: NORCO 7.5-3251 EACH PO (08:19)
[2019-10-30] MEDS ORDERED: MEDROL4 M1 PO (08:25)
[2019-10-30] MEDS ORDERED: AUGMENTIN 875-1 EACH PO (08:25)
[2019-10-30 10:35] VITALS: BP 129/67
--- NOTE | 2019-10-30 11:21 | NUR ---
ASSESSMENT CHARTED. PT ALERT AND ORIENTED. VSS. PRN PAIN MED GIVEN WITH PARTIAL RELIEF. SEEN BY DR. GARCIA. ORDERS GIVEN TO DISCHARGE PT TO HOME. DISCHARGE INSTRUCTIONS GIVEN TO PT. PT VERBERLISED UNDERSTANDING.
--- NOTE | 2019-10-30 11:51 | NUR ---
on-going assessment: PT HAS ORDERS TO DISCHARGE HOME TODAY WITH NO NEEDS. CASE CLOSED.
== END 2019-10-30 12:16 | disposition home or self-care (01) | DRG 157 ==
LOC: ER 18:40 → 2N 22:33 → EROBS 22:33 → 2N 23:07 → ENTRNSPT 10-30 11:49 → CMPTRNSPT 10-30 11:54 → 2N 10-30 12:16
PROVIDERS: Physician Assistant; ADMIT Hospitalist
DX: K12.2 Cellulitis and abscess of mouth (principal); E43 Unspecified severe protein-calorie malnutrition; J98.11 Atelectasis; G43.909 Migraine, unspecified, not intractable, without status migrainosus; I10 Essential (primary) hypertension; R13.10 Dysphagia, unspecified; F17.210 Nicotine dependence, cigarettes, uncomplicated; G51.0 Bell's palsy; J03.90 Acute tonsillitis, unspecified; Z68.33 Body mass index [BMI] 33.0-33.9, adult; Z28.21 Immunization not carried out because of patient refusal
CPT/HCPCS: 10081

== ENCOUNTER 2020-02-20 18:53 | Emergency (ER) | payer OTHER ==
[~2020-02-20] VITALS: Ht 175.3 cm; Wt 89.4 kg
[~2020-02-20 18:53] MED LIST changes: +MEDROL4 M1 PO; +NORCO 7.5-3251 EACH PO
[2020-02-20] MEDS ORDERED: NORCO 10-325 T1 EACH PO (20:18)
[2020-02-20] MEDS ORDERED: PREDNISONE 20 M20 MG PO (20:18)
[2020-02-20] MEDS ORDERED: CYCLOBENZAPRINE5 MG PO (20:18)
[2020-02-20 20:34] VITALS: BP 157/112
== END 2020-02-20 20:39 | disposition home or self-care (01) ==
LOC: ER 18:53
DX: M51.26 Other intervertebral disc displacement, lumbar region (principal); G43.909 Migraine, unspecified, not intractable, without status migrainosus; I10 Essential (primary) hypertension; F17.210 Nicotine dependence, cigarettes, uncomplicated; Z79.899 Other long term (current) drug therapy; Z98.890 Other specified postprocedural states

== ENCOUNTER 2020-03-15 19:32 | Emergency (ER) | payer OTHER ==
[~2020-03-15] VITALS: Ht 175.3 cm; Wt 87.5 kg
[2020-03-15 20:20] VITALS: BP 177/113
[2020-03-15] MEDS ORDERED: TOPROL XL100 MG PO (20:29)
[2020-03-15] MEDS ORDERED: PERCOCET 5-3251 EACH PO (21:28)
[2020-03-15] MEDS ORDERED: CYCLOBENZAPRINE5 MG PO (21:28)
[2020-03-15] MEDS ORDERED: IBUPROFEN 600600 M1 PO (21:28)
== END 2020-03-15 21:38 | disposition home or self-care (01) ==
LOC: ER 19:32
DX: M54.5 Low back pain (principal); I10 Essential (primary) hypertension; G43.909 Migraine, unspecified, not intractable, without status migrainosus; F17.210 Nicotine dependence, cigarettes, uncomplicated; Z79.899 Other long term (current) drug therapy

== ENCOUNTER 2021-03-28 18:51 | Inpatient (IN) | payer OTHER ==
[~2021-03-28] VITALS: Ht 175.3 cm; Wt 92.1 kg
[~2021-03-28 18:51] MED LIST changes: +TOPROL XL100 MG PO
[2021-03-28 19:04] VITALS: BP 199/125
[2021-03-28 19:52] LABS: ANION GAP 10 mmol/L (7-16); BUN 15 mg/dL (7-18); CHLORIDE 106 mmol/L (98-107); CO2 21 mmol/L (21-32); CREATININE 1.1 mg/dL (0.7-1.3); GLUCOSE 119 mg/dL (74-106); POTASSIUM 5.8 mmol/L (3.5-5.1); SODIUM 137 mmol/L (136-145)
[2021-03-28 19:59] LABS: ABSOLUTE NEUTROPHILS 4.3 thou/uL (1.4-8.2); BASOPHILS 0.7 % (0.0-2.0); HEMATOCRIT 45.6 % (42.0-52.0); HEMOGLOBIN 15.7 gm/dL (14.0-18.0); LYMPHOCYTES 26.1 % (24.0-44.0); MCH 33.9 pg (26.0-34.0); MCHC 34.3 g/dL (28.0-37.0); MCV 98.8 fL (80.0-100.0); MONOCYTES 10.8 % (1.0-8.0); PLATELET COUNT 266 thou/uL (150-400); POLYS 60.4 % (36.0-66.0); RBC 4.62 mil/uL (4.50-6.00); RDW 14.4 % (10.5-14.5); WBC 7.1 thou/uL (4.0-11.0)
[2021-03-28 20:02] LABS: ALBUMIN 3.9 g/dL (3.4-5.0); SGOT 22 U/L (15-37); SGPT 20 U/L (30-65); TOTAL BILIRUBIN 0.3 mg/dL (0.2-1.0); TOTAL PROTEIN 7.9 g/dL (6.4-8.2); TROPONIN-I <0.06 ng/mL (<0.06)
--- NOTE | 2021-03-29 01:34 | NUR ---
ASKED PT IF DRUG ALLERGIES WERE CONFIRMED UPON ARRIVAL. PT STATED HE WAS ALLERGIC TO CLINDAMYCIN. CLINDAMYCIN HAD ALREADY INFUSED VIA IV. PT WAS TOLD WHAT DRUGS WERE BEING ADMINISTERED AT TIME OF ADMINISTRATION AND PT DID NOT STATE ALLERGY TO CLINDAMYCIN AT THAT TIME. PT REPORTS ONLY SIDE EFFECT IS ITCHING AND HE NORMALLY WILL JUST TAKE BENDARYL. PT IS NOT PRESENTING WITH SIDE EFFECTS OF THE CLINDAMYCIN INFUSION. PT DOES NOT REPORT ITCHING. PT PROVIDED WITH CALL LIGHT TO CALL IF HE DEVELOPS ITCHING OR OTHER SYMPTOMS. PT VERBALIZED UNDERSTANDING.
[2021-03-29 06:32] LABS: CALCIUM 9.3 mg/dL (8.5-10.1); CREATININE 1.2 mg/dL (0.7-1.3)
[2021-03-29 06:34] LABS: POTASSIUM 4.5 mmol/L (3.5-5.1)
--- NOTE | 2021-03-29 07:26 | EKG ---
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
[2021-03-29 08:59] LABS: CHOLESTEROL 261 mg/dL (<200); HDL CHOLESTEROL 66 mg/dL (>40); LDL CHOLESTEROL 184 mg/dL (<100); TRIGLYCERIDE 55 mg/dL (<150); VLDL 11 mg/dL (<40)
--- NOTE | 2021-03-29 12:17 | 2DMMODE ---
[facility] [address] [place] [address] 2 D/M-MODE ECHOCARDIOGRAM Name: JOAN HERNANDEZ CANDACE Room #: 170-14 ADM IN M.R.#: [id number] Admission: 03/28/21 Attend Phys: Fatuma Colorado MD Discharge: Date of : 70 Report #: [id number] THIS REPORT FOR: cc: Dl Painter MD, Richard MD Park, Jin S. MD ~ APPROVED REPORT Study performed: 03/29/2021 09:55:32 EXAM: Comprehensive 2D, Doppler, and color-flow Echocardiogram Patient Location: ER Status: routine BSA: 2.08 HR: 65 bpm BP: 191/106 mmHg Rhythm: NSR Other Information Study Quality: Good Indications Chest Pain HTN 2D Dimensions RVDd: 30.57 mm IVSd: 13.00 (7-11mm) LVOT Diam: 22.00 (18-24mm) LVDd: 45.00 mm PWd: 12.00 (7-11mm) Ascending Ao: 34.00 (22-36mm) LVDs: 25.00 (25-40mm) Left Atrium: 33.00 (27-40mm) Aortic Root: 40.09 mm Volumes Left Atrial Volume (Systole) Single Plane 4CH: 42.85 mL Single Plane 2CH: 41.41 mL LA ESV Index: 23.00 mL/m2 Aortic Valve AoV Peak Joe.: 1.63 m/s AO Peak Gr.: 10.61 mmHg LVOT Max P.42 mmHg LVOT Max V: 1.45 m/s [facility] [address] [address] 2 D/M-MODE ECHOCARDIOGRAM Name: JOAN HERNANDEZ Room #: 170-14 ADM IN .R.#: [id number] Admission: 03/28/21 Attend Phys: Darrell Munguia Discharge: Date of : 70 Report #: [id number] [id number] R Vmax: 3.23 cm2 Mitral Valve E/A Ratio: 0.7 MV Decel. Time: 269.76 ms MV E Max Joe.: 0.70 m/s MV A Joe.: 0.94 m/s MV PHT: 78.23 ms IVRT: 79.58 ms Pulmonary Valve PV Peak Joe.: 0.86 m/s PV Peak Gr.: 2.97 mmHg Pulmonary Vein P Vein S: 0.81 m/s P Vein A: 0.36 m/s P Vein D: 0.40 m/s P Vein A Dur.: 128.0 msec P Vein S/D Ratio: 2.03 Tricuspid Valve RAP Estimate: 5.00 mmHg Left Ventricle The left ventricle is normal size. There is normal LV segmental wall motion. Mild concentric left ventricular hypertrophy. Left ventricular systolic function is hyperdynamic. LVEF is 65-70%. Mild diastolic dysfunction is present (impaired relaxation pattern). Right Ventricle The right ventricle is normal size. The right ventricular systolic function is normal. Atria The left atrium size is normal. The right atrium size is normal. Aortic Valve The aortic valve is normal in structure. Mild aortic regurgitation. There is no aortic valvular stenosis. Mitral Valve The mitral valve is normal in structure. There is no mitral valve regurgitation noted. No evidence of mitral valve stenosis. Tricuspid Valve The tricuspid valve is normal in structure. There is no tricuspid [facility] [address] [place] [address] 2 D/M-MODE ECHOCARDIOGRAM Name: JOAN HERNANDEZ [facility] Room #: 170-14 ADM IN .R.#: [id number] Admission: 03/28/21 Attend Phys: Darrell Munguia Discharge: Date of : 70 Report #: [id number] valve regurgitation noted. Unable to assess PA pressure. Pulmonic Valve The pulmonary valve is normal in structure. There is no pulmonic valvular regurgitation. Great Vessels Aortic root at the level of the sinuses is mildly dilated (4.0cm). The ascending aorta is normal in size. IVC is normal in size and collapses >50% with inspiration. Pericardium There is no pericardial effusion. <Conclusion> The left ventricle is normal size. Mild concentric left ventricular hypertrophy. Left ventricular systolic function is hyperdynamic. Mild diastolic dysfunction is present (impaired relaxation pattern). The right ventricle is normal size. The left atrium size is normal. Mild aortic regurgitation. There is no mitral valve regurgitation noted. <ELECTRONICALLY SIGNED> By: Joel Woods MD 03/29/211216 16 16 Joel Woods MD /INF
[2021-03-29 15:09] VITALS: BP 168/89
[2021-03-29 15:34] VITALS: BP 162/92
[2021-03-29 19:40] VITALS: BP 175/78
[2021-03-30 00:30] VITALS: BP 143/92
--- NOTE | 2021-03-30 03:11 | NUR ---
ASSUMED PT CARE 194. PT IS ALERT AND ORIENTED X4. PT TOLERATED IV CLINDAMYCIN INFUSION WELL WITH NO C/O ITCHING. PT TOLERATING RA. PT IS UPX1 TO THE BR. VS AND ASSESSMENT CHARTED. PT'S PAIN MANAGED BY PRN MEDS. PT DID NOT VERBALIZE ANY OTHER CONCERNS. FALL PRECAUTIONS IN PLACE WITH CALL LIGHT WITHIN REACH. WILL CONTINUE TO MONITOR.
[2021-03-30 08:40] VITALS: BP 151/81
[2021-03-30] MEDS ORDERED: NORVASC10 MG PO (11:37)
[2021-03-30] MEDS ORDERED: BYSTOLIC10 MG PO (11:38)
[2021-03-30] MEDS ORDERED: BAYER CHEWABLE81 MG PO (11:39)
[2021-03-30] MEDS ORDERED: HYDRALAZINE 2525 M1 PO (11:40)
--- NOTE | 2021-03-30 12:10 | NUR ---
Pt is AXOX4. IV in left forearm SL for ABX. Released from it teacher today. Dr. Monreal discharged. Educated regarding tx and goals.
--- NOTE | 2021-03-30 12:28 | NUR ---
PT ADMITTED RELATED TO THROUGH HOSPICE. CM REVIEWED CHART AND SPOKE WITH CARE TEAM. CM MET WITH PT AT BEDSIDE THIS DAY. PT APPEARED TO BE A&O X4 .CM ROLE INTRODUCED. PT INDICATED HE RESIDES IN A HOUSE WITH FAMILY WITH 1 STEP TO ENTER AND A FULL FLIGHT OF STEPS TO BASEMENT. 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 PT INDICATED HE HAD HH AFTER KNEE REPLACEMENTS IN THE PAST. PT INDICATED HE PLANS TO RETURN HOME ONCE MEDICALLY STABLE. CM INDICATED THAT CARE TEAM HAD INDICATED THAT CARE TEAM STATED THAT LONG ECHO WAS OK PT WOULD LIKELY BE DC READY TODAY. PT INDICATED HE WOULD PREFER TO DC TOMORROW NO FAMILY WILL BE HOME THIS EVENING. CM CONVEYED PREFERANCE TO HOSPITALIST AND SHE INDICATED DC TODAY. HOME TO SELF CARE.
[2021-03-30 13:34] VITALS: BP 151/81
== END 2021-03-30 14:00 | disposition home or self-care (01) | DRG 305 ==
LOC: ER 18:51 → EROBS 21:43 → 4W 21:43 → EROBS 03-29 08:26 → 4W 03-29 15:09
PROVIDERS: Emergency Medicine; Nurse Practitioner Adult Health; Nurse Practitioner Family; ADMIT Internal Medicine; ATTEND Internal Medicine
DX: I16.0 Hypertensive urgency (principal); G43.909 Migraine, unspecified, not intractable, without status migrainosus; I10 Essential (primary) hypertension; D49.0 Neoplasm of unspecified behavior of digestive system; Z20.822 Contact with and (suspected) exposure to COVID-19; R22.1 Localized swelling, mass and lump, neck; F17.210 Nicotine dependence, cigarettes, uncomplicated; K14.9 Disease of tongue, unspecified; Z79.899 Other long term (current) drug therapy; Z88.1 Allergy status to other antibiotic agents; Z82.49 Family history of ischemic heart disease and other diseases of the circulatory system; Z79.82 Long term (current) use of aspirin; Z71.6 Tobacco abuse counseling
CPT/HCPCS: 10045

== ENCOUNTER 2021-10-02 18:40 | Emergency (ER) | payer OTHER ==
[~2021-10-02] VITALS: Ht 175.3 cm; Wt 102.1 kg
[~2021-10-02 18:40] MED LIST changes: +BAYER CHEWABLE81 MG PO; +BYSTOLIC10 MG PO; +COLACE100 MG PO; +HYDRALAZINE 2525 M1 PO; +LEVAQUIN 500 M500 MG PO; +LISINOPRIL2.5 MG PO; +MELOXICAM15 MG PO; +NEURONTIN 300M300 M2 PO; +NORCO 5-325 TA1 EAC2 PO; +NORVASC10 MG PO
[2021-10-02 19:54] LABS: ABSOLUTE NEUTROPHILS 1.9 thou/uL (1.4-8.2); BASOPHILS 0.9 % (0.0-2.0); EOSINOPHILS 4.2 % (0.0-3.0); HEMATOCRIT 42.6 % (42.0-52.0); HEMOGLOBIN 14.4 gm/dL (14.0-18.0); LYMPHOCYTES 40.7 % (24.0-44.0); MCH 32.9 pg (26.0-34.0); MCHC 33.9 g/dL (28.0-37.0); MCV 97.1 fL (80.0-100.0); MONOCYTES 10.8 % (1.0-8.0); PLATELET COUNT 198 thou/uL (150-400); POLYS 43.4 % (36.0-66.0); RBC 4.39 mil/uL (4.50-6.00); RDW 15.8 % (10.5-14.5); WBC 4.4 thou/uL (4.0-11.0)
[2021-10-02 20:22] LABS: CALCIUM 8.6 mg/dL (8.5-10.1)
[2021-10-02 20:24] LABS: POTASSIUM 4.6 mmol/L (3.5-5.1)
[2021-10-02 21:29] VITALS: BP 149/95
== END 2021-10-02 21:30 | disposition home or self-care (01) ==
LOC: ER 18:40
PROVIDERS: Student in an Organized Health Care Education/Training Program
DX: G43.909 Migraine, unspecified, not intractable, without status migrainosus (principal); F17.210 Nicotine dependence, cigarettes, uncomplicated; Z88.1 Allergy status to other antibiotic agents